=== PATIENT | male | born 1995 ===

== ENCOUNTER 2016-10-20 17:52 | Emergency (ER) | payer OTHER ==
[~2016-10-20] VITALS: Ht 165.1 cm; Wt 66.2 kg
== END 2016-10-20 18:49 | disposition home or self-care (01) ==
LOC: CFTX 17:52 → CED 17:52 → CFTX 18:45
DX: S60.121A Contusion of right index finger with damage to nail, initial encounter (principal); W23.0XXA Caught, crushed, jammed, or pinched between moving objects, initial encounter; Y93.89 Activity, other specified; Y92.009 Unspecified place in unspecified non-institutional (private) residence as the place of occurrence of the external cause
CPT/HCPCS: 99283